=== PATIENT | male | born 1950 | race Caucasian/White ===

== ENCOUNTER 2018-10-19 07:51 | Day surgery (SDC) | payer MEDICARE ==
[~2018-10-19] VITALS: Ht 172.7 cm; Wt 97.9 kg
[~2018-10-19 07:51] MED LIST: ASPI81TA26 PO; ATOR1TAB19 PO; LIDOCAINE 2% INJ 100 MG/5 ML SDV (FOR ANES.) As Ordered ONE; LISI10TA4 PO; METF500T13 PO; PROPOFOL 200 MG/20 ML VIAL As Ordered ONE; RANI1TAB6 PO
[2018-10-19] MEDS ORDERED: NS 1,000 ML IV ONE (09:00)
--- NOTE | 2018-10-19 09:23 | ROOR ---
Patient Name: James Devine Procedure Date: 10/19/2018 9:03 AM Date of : 1950 Age: 68 Room: [facility] Gender: Male Note Status: Finalized Procedure: Colonoscopy Indications: High risk colon cancer surveillance: Personal history of colonic polyps Providers: Edgar Todd Jr, MD Referring MD: Joseph Perez MD Requesting Provider: Medicines: Propofol per Anesthesia Complications: No immediate complications. Procedure: Pre-Anesthesia Assessment: - Prior to the procedure, a History and Physical was performed, and patient medications and allergies were reviewed. The patient is competent. The risks and benefits of the procedure and the sedation options and risks were discussed with the patient. All questions were answered and informed consent was obtained. Patient identification and proposed procedure were verified by the physician and the nurse in the pre-procedure area and in the procedure room. Mental Status Examination: alert and oriented. Airway Examination: normal oropharyngeal airway and neck mobility. Respiratory Examination: clear to auscultation. CV Examination: normal. ASA Grade Assessment: II - A patient with mild systemic disease. After reviewing the risks and benefits, the patient was deemed in satisfactory condition to undergo the procedure. The anesthesia plan was to use moderate sedation / analgesia (conscious sedation). Immediately prior to administration of medications, the patient was re-assessed for adequacy to receive sedatives. The heart rate, respiratory rate, oxygen saturations, blood pressure, adequacy of pulmonary ventilation, and response to care were monitored throughout the procedure. The physical status of the patient was re-assessed after the procedure. The Colonoscope was introduced through the anus and advanced to the cecum, identified by appendiceal orifice and ileocecal valve. The colonoscopy was performed without difficulty. The patient tolerated the procedure well. The quality of the bowel preparation was adequate. Findings: The rectum, recto-sigmoid colon, descending colon, transverse colon, ascending colon, cecum, appendiceal orifice and ileocecal valve appeared normal. Multiple small and large-mouthed diverticula were found in the sigmoid colon. Impression: - The rectum, recto-sigmoid colon, descending colon, transverse colon, ascending colon, cecum, appendiceal orifice and ileocecal valve are normal. - Diverticulosis in the sigmoid colon. - No specimens collected. Recommendation: - Discharge patient to home (ambulatory). - Repeat colonoscopy in 5 years for surveillance. Edgar Todd MD Edgar Todd Jr, MD 10/19/2018 9:23:15 AM Electronically signed by Edgar Todd Jr, MD Number of Addenda: 0 Note Initiated On: 10/19/2018 9:03 AM Estimated Blood Loss: Estimated blood loss: none.
[2018-10-19 09:51] VITALS: BP 129/74
== END 2018-10-19 09:52 | disposition home or self-care (01) ==
LOC: M OPP 07:51
PROVIDERS: ATTEND Surgery
DX: K57.30 Diverticulosis of large intestine without perforation or abscess without bleeding (principal); Z86.010 Personal history of colon polyps

== ENCOUNTER → 2019-08-14 | Outpatient (CLI) | payer MEDICARE ==
[~2019-08-14] MED LIST changes: -LIDOCAINE 2% INJ 100 MG/5 ML SDV (FOR ANES.) As Ordered ONE; -PROPOFOL 200 MG/20 ML VIAL As Ordered ONE; +RANI-397 PO; -RANI1TAB6 PO
[2019-08-14 10:02] LABS: INR 1.04; PROTHROMBIN TIME 13.3 SECONDS (11.8-14.0)
[2019-08-14 10:08] LABS: HEMATOCRIT 46.4 % (42.0-52.0); HEMOGLOBIN 15.6 g/dl (13.5-17.5); MEAN CORPUSCULAR HEMOGLOBIN 31.7 pg (27.0-33.0); MEAN CORPUSCULAR HGB CONC 33.6 g/dl (32.0-36.5); MEAN CORPUSCULAR VOLUME 94.3 fl (80.0-96.0); PLATELET COUNT, AUTOMATED 212 10^3/uL (150-450); RED BLOOD COUNT 4.92 10^6/uL (4.30-6.10); WHITE BLOOD COUNT 4.7 10^3/uL (4.0-10.0)
[2019-08-14 10:27] LABS: ALBUMIN 3.8 GM/DL (3.2-5.2); ALT/SGPT 34 U/L (12-78); BILIRUBIN,TOTAL 0.7 MG/DL (0.2-1.0); BLOOD UREA NITROGEN 20 MG/DL (7-18); CALCIUM LEVEL 9.1 MG/DL (8.8-10.2); CARBON DIOXIDE LEVEL 29 MEQ/L (21-32); CHLORIDE LEVEL 106 MEQ/L (98-107); CREATININE FOR GFR 1.01 MG/DL (0.70-1.30); ERYTHROCYTE SEDIMENTATION RATE 6 mm/hr (0-20); GLOMERULAR FILTRATION RATE > 60.0 (>49); GLUCOSE, FASTING 144 MG/DL (70-100); POTASSIUM SERUM 4.6 MEQ/L (3.5-5.1); SODIUM LEVEL 140 MEQ/L (136-145); TOTAL PROTEIN 6.7 GM/DL (6.4-8.2)
--- NOTE | 2019-08-15 08:37 | REP ---
CHEST, TWO VIEWS: Two views of the chest are performed. There is no acute infiltrate or pulmonary edema. The heart is normal in size. There is tortuosity and calcification of the thoracic aorta. Mediastinal silhouette is otherwise unremarkable. There are mild degenerative changes of the spine. Metallic fixation is seen in the lower cervical spine. IMPRESSION: No acute pulmonary disease. Electronically Signed by Jerry Vogel MD 08/15/2019 10:47 P
--- NOTE | 2019-08-16 01:09 | ECGEPIP ---
[facility] Test Date: 2019-08-14 Pat Name: MARGARET MANZO Department: Room: - Gender: Male Boat Hand: HIRA : 1950 Requested By: Max Coates Order Number: [id number] Reading MD: Akash Purvis Measurements Intervals [place] Rate: 60 P: 97 ND: 197 QRS: 11 QRSD: 79 T: 23 QT: 388 QTc: 389 Interpretive Statements SINUS RHYTHM NONSPECIFIC T-WAVE ABNORMALITY Compared to prior tracing in the system, NO SIGNIFICANT CHANGES Electronically Signed on 08-16-2019 1:09:45 EST by Akash Purvis
== END ==
LOC: M LAB 08:58
PROVIDERS: ATTEND Orthopaedic Surgery
DX: Z01.818 Encounter for other preprocedural examination (principal); M17.12 Unilateral primary osteoarthritis, left knee; E11.9 Type 2 diabetes mellitus without complications; Z88.0 Allergy status to penicillin; Z91.012 Allergy to eggs; Z79.899 Other long term (current) drug therapy

== ENCOUNTER 2019-08-20 09:26 | Inpatient (IN) | payer MEDICARE ==
--- NOTE | 2019-08-17 15:02 | HPE ---
DATE OF ADMISSION: 08/20/2019 ATTENDING PHYSICIAN: Dr. Gillespie CHIEF COMPLAINT: Left knee degenerative arthritis. HISTORY The patient is a pleasant 69-year-old male with progressively worsening left knee pain and stiffness. He failed to improve with conservative measures. He continues to have symptoms with weightbearing activities and activities of daily living. The patient consented for an elective left total knee arthroplasty with Dr. Gillespie for his continued symptoms. Medical optimization pending with Dr. Perez. CURRENT MEDICATIONS: - pravastatin 10 mg daily - Lisinopril 10 mg daily - aspirin 81 mg daily - ranitidine 75 mg daily - metformin 500 mg twice daily ALLERGIES: AMOXICILLIN, EGGS. CHRONIC MEDICAL CONDITIONS: 1. Hypertension. 2. Hyperlipidemia. 3. Diabetes. 4. Gastroesophageal reflux disease (GERD). PAST SURGICAL HISTORY: 1. Bilateral knee arthroscopies SOCIAL HISTORY: The patient denies tobacco use and occasionally uses alcohol. FAMILY HISTORY: Noncontributory. REVIEW OF SYSTEMS: The patient denies fevers, chills, nausea, vomiting or diarrhea. Denies chest pain, shortness of breath, lightheadedness, dizziness or headaches. Denies any upper respiratory or urinary tract infection symptoms. Denies any abdominal pain. He does continue to have left knee pain with weightbearing activities and activities of daily living. PHYSICAL EXAMINATION General: Well-nourished, well-developed male in no apparent distress. He is alert, oriented and cooperative. Mood and affect are appropriate. Vital signs: Height 67.25 inches, weight 212.8 pounds, temperature 97.2, heart rate 72, respirations 14, blood pressure 130/78. Neck: Supple without lymphadenopathy. Heart: Regular rate and rhythm. Lungs: Clear to auscultation bilaterally. Abdomen: Bowel sounds are present. Abdomen is soft and nontender to palpation. Musculoskeletal: Left knee reveals no erythema, edema or ecchymosis. There are benign-appearing surgical portal holes present. There is tenderness along the medial joint line. The patient can extend knee fully and flex to approximately 90 degrees. Left lower extremity strength is 5/5. There was no hip irritability elicited with range of motion testing. The patient's calf is soft, nontender to palpation with no palpable cords noted. He is neurovascularly intact distally. LABORATORY DATA: Chest x-ray showed no acute pulmonary disease. Left knee x-ray notable for end-stage degenerative changes. EKG showed sinus rhythm with nonspecific T-wave abnormality. Comprehensive metabolic profile: Fasting glucose elevated at 144, BUN elevated 20, creatinine 1.01, GFR greater than 60, sodium 140, potassium 4.6, chloride 106, carbon dioxide 29, anion gap decreased at 5, calcium 9.1, AST 24, ALT 34, alkaline phosphatase 72, total bilirubin 0.7, total protein 6.7, albumin 3.8, albumin-globulin ratio 1.31. Prothrombin time 13.3, INR 1.04. Complete blood count ESR 6, WBCs 4.7, RBCs 4.92, hemoglobin 15.6, hematocrit 46.4, platelets 212. IMPRESSION: 1. Left knee degenerative arthritis with x-rays notable for end-stage degenerative changes. PLAN: The patient has consented for an elective left total knee arthroplasty with Dr. Gillespie for his continued symptoms. Medical optimization pending with Dr. Perez. Reviewed pre and postoperative instructions to include but not limited to need to be nothing by mouth after midnight, length of stay, when to stop NSAIDs, aspirin and anticoagulants. The patient will also follow primary acute care certified nursing assistant's recommendations for how to take their daily medications. DIDIER
[~2019-08-20] VITALS: Ht 172.7 cm; Wt 97.1 kg
[2019-08-20] MEDS: ATORVASTATIN 10 MG TAB PO SCH (09:00)
[~2019-08-20 09:26] MED LIST changes: +BUPIVACAINE HCL 0.25% 10 ML VIAL As Ordered ONE; +BUPIVACAINE LIPOSOME/PF 1.3% 20ML VIAL (13.3MG/ML)(EXPAREL)(C9290 PER1MG) As Ordered ONE; +EPINEPHrine INJ 1 MG/ML 1ML VIAL As Ordered ONE; +LR 1,000 ML IV ONE; +MIDAZOLAM INJ 2 MG/2 ML VIAL (J2250) IV SCH; +TRANEXAMIC ACID 100 MG/ML 10ML VIAL As Ordered ONE; +ceFAZolin 1GM INJ (J0690 PER 500MG) As Ordered ONE; +ceFAZolin SOD 2 GM in IV 1 EA IV ONE; +fentaNYL 100 MCG/2 ML INJECTION (J3010) IV SCH
[2019-08-20] MEDS ORDERED: ACETAMINOPHEN 500 MG TAB PO ONE (09:45)
[2019-08-20] MEDS ORDERED: fentaNYL 100 MCG/2 ML INJECTION (J3010) As Ordered ONE ×2 (11:40→12:43)
[2019-08-20] MEDS ORDERED: MIDAZOLAM INJ 2 MG/2 ML VIAL (J2250) As Ordered ONE ×2 (11:40→12:43)
[2019-08-20] MEDS ORDERED: propofoL 200 MG/20 ML VIAL As Ordered ONE ×3 (12:43→13:32)
[2019-08-20] MEDS ORDERED: ePHEDrine SULFATE 25 MG/5 ML(5MG/ML) SYRINGE As Ordered ONE (12:55)
[2019-08-20] MEDS ORDERED: ONDANSETRON 4MG/2ML VIAL (J2405) IV PRN ×2 (14:15→15:15)
[2019-08-20] MEDS ORDERED: HYDROMORPHONE HCL 0.5 MG/ 0.5 ML SYRINGE (J1170 PER 1) IV PRN (14:15)
[2019-08-20] MEDS ORDERED: PERCOCET 5MG/325MG TAB PO PRN ×4 (14:15→21:15)
[2019-08-20] MEDS ORDERED: LR 1,000 ML IV SCH (14:15)
[2019-08-20] MEDS ORDERED: fentaNYL 100 MCG/2 ML INJECTION (J3010) IV PRN (14:15)
--- NOTE | 2019-08-20 14:53 | RO ---
DATE OF OPERATION: 08/20/2019 PREOPERATIVE DIAGNOSIS: Left knee degenerative arthritis. POSTOPERATIVE DIAGNOSIS: Left knee degenerative arthritis. PROCEDURE: Left total knee arthroplasty using a size 7 cruciate-retaining femoral component with a size 7 tibial tray and 8 mm polyethylene insert rotating platform with a 38 mm polyethylene button. The prosthesis was made by [employer]. It was an Attune knee. All components were cemented. SURGEON: Max Gillespie MD LINK TRAINER OPERATOR: Ms. Meena Baugh ANESTHESIA: Spinal with left femoral nerve block. COMPLICATIONS: None. ESTIMATED BLOOD LOSS: 20 mL. SPECIMENS: Joint surface. DESCRIPTION OF PROCEDURE: Antibiotics were given intravenously preoperatively, a successful left femoral nerve block, and then a spinal anesthetic was induced, the tourniquet was placed on the left upper thigh and not inflated. The left lower extremity was carefully prepped and draped in the usual sterile fashion. The leg elevated. Then, after appropriate time-out, the tourniquet was inflated. A longitudinal incision was made for a medial parapatellar approach to the knee. Bovie cautery used to coagulate crossing vessels. Subperiosteal dissection around the proximal medial and lateral tibial plateau was performed. The patella was then everted, the knee flexed, the anterior cruciate ligament (ACL) debrided, then the drill placed down the center of the femoral canal. Intramedullary krystina was then placed with the distal femoral cutting jig set at 5-degree valgus cut for a left knee at 9-mm resection level. The block was pinned into position, the distal femoral cut was performed. AP sizing jig measured for a size 7 prosthesis. 3 degrees of external rotation dialed in. The block was pinned into position followed by the 4-in-1 block, and then the anterior and posterior chamfer cuts performed. The sulcus osteotomy guide was then placed, and the sulcus osteotomy performed. We then exposed the proximal tibia, used the extramedullary alignment jig to estimate being parallel to the mechanical axis, referencing off the medial tibial condyle at 4 mm resection level. The block was pinned into position, then a secondary check with the extramedullary krystina confirmed we appeared to be parallel to the mechanical axis. The proximal tibial osteotomy was thus performed, and then the lamina tobacco drying machine operator was placed medially, and we performed a completion of lateral meniscectomy, debriding the posterior and lateral osteophytes, and then placed the lamina tobacco drying machine operator medially, and performed a completion of lateral meniscectomy with debridement of the posterior and lateral osteophytes. We then placed the spacer block, and 8 mm spacer block that fit the best in both flexion and in extension with good stability to varus and valgus stress testing. We then exposed the proximal tibia, sized for a size #7 tibial tray, which was pinned into position, followed by the reamer and broach. The trial polyethylene was placed, the trial femoral component was then placed, the knee was brought into extension, the patella was everted, patellar osteotomy performed, then the lug holes drilled, and then the trial placed, and the patellofemoral tracking was anatomic. We then drilled the lug holes for the femur, removed all the trial components, placed Exparel in the subperiosteal tissues around the distal femur and the proximal tibia, and then Ms. Meena Baugh mixed the cement on the back table as I prepared the bony surfaces for cementing with a copious amount of pulsatile lavage irrigant solution. She was also critical to the success of this difficult procedure by helping to manipulate the knee as needed, helped with appropriate soft tissue retraction, helped to mix the cement, helped to close the wound, helped to prepare the patient, amongst many other tasks to allow me to perform the operation smoothly, efficiently, and safely. We then cemented the tibial tray, removed excess cement, placed the polyethylene, cemented the femoral component, removed excess cement, placed the knee in extension, everted the patella, and then held the patella with a clamp, and then removed excess cement, and held the knee in full extension until the cement had hardened; and as we were awaiting this, we copiously pulsatile lavage irrigated out the knee joint, and then placed tranexamic acid into the knee joint, and then closed the apex of the arthrotomy with two #1 polydioxanone suture (PDS) sutures. The medial parapatellar area was closed with a single #1 PDS suture, then a running double-arm Stratafix used to close the capsule. The tourniquet was then released. Then, we irrigated again and then closed the deep subdermal tissues with interrupted 2-0 PDS sutures. The skin was closed with ward, covered by an Optifoam dry sterile bulky dressing. He was then transferred to the recovery room in stable condition. There were no intraoperative complications.
--- NOTE | 2019-08-20 14:56 | REP ---
Left knee two views postoperative study: There is a total knee arthroplasty. The components are tightly applied and in satisfactory positions alignment. Skin ward are incidentally noted. Electronically Signed by Jerry Winter MD 08/20/2019 02:48 P
[2019-08-20] MEDS ORDERED: ROPIvacaine 0.5% 30 ML INJECTION (J2795 PER 1MG) ONE (14:58)
[2019-08-20] MEDS ORDERED: dexameTHASONE 10 MG/1 ML VIAL PRES.FREE (J1100) ONE (14:58)
[2019-08-20] MEDS ORDERED: LIDOCAINE 1% MDV 20ML VIAL ONE (14:58)
[2019-08-20] MEDS ORDERED: ACETAMINOPHEN TAB 650MG DOSE (2X325MG) PO PRN (15:15)
[2019-08-20] MEDS: LR 1,000 ML IV SCH (15:15)
[2019-08-20 15:30] VITALS: BP 141/79
[2019-08-20 16:02] VITALS: BP 141/83
[2019-08-20] MEDS ORDERED: GLUCOSE 4 GM CHEW TABLET PO PRN (16:45)
[2019-08-20] MEDS ORDERED: GLUCAGON FOR INJ 1 MG VIAL (J1610) SC PRN (16:45)
[2019-08-20] MEDS ORDERED: DEXTROSE 50% 50 ML SYRINGE IV PRN (16:45)
[2019-08-20 17:00] VITALS: BP 141/81
[2019-08-20] MEDS: HumaLOG INSULIN (NovoLOG) PER UNIT SC SCH (17:01)
--- NOTE | 2019-08-20 17:59 | CR ---
DATE OF CONSULTATION: 08/20/2019 REQUESTING PHYSICIAN: Dr. Gillespie. REASON FOR CONSULTATION: Medical management of diabetes. HISTORY OF PRESENT ILLNESS: Mr. Devine is a 69-year-old gentleman who has a history of hypertension, hyperlipidemia, as well as non-insulin dependent diabetes mellitus type 2, along with gastroesophageal reflux disease (GERD). He has longstanding severe left knee osteoarthritis and underwent elective left total knee arthroplasty today. He is seen in the postoperative setting following his surgery. He is doing well. He is not experiencing any pain. His is at the bedside. He denies having any chest discomfort, shortness of breath. He is not have adverse reactions to the spinal block that he has received. He is able to move his legs at this time. His vital signs are stable and he remains afebrile. ALLERGIES: PENICILLIN, EGGS. MEDICATIONS AT HOME: - baby aspirin daily - atorvastatin 10 mg daily - lisinopril 10 mg daily - metformin 5 mg twice a day - ranitidine 1 tablet by mouth daily PAST MEDICAL HISTORY: 1. Hypertension. 2. Hyperlipidemia. 3. Non-insulin dependent diabetes. 4. Gastroesophageal reflux disease (GERD). PAST SURGICAL HISTORY: Is notable for: 1. Bilateral knee arthroscopy. 2. Left total knee arthroplasty this hospitalization. SOCIAL HISTORY: Patient is , lives at home with his . Does not use tobacco, alcohol or illicit drugs. He is a [employer]. His is the surrogate medical decision-maker. FAMILY HISTORY: Noncontributory. REVIEW OF SYSTEMS: A 12 system review with the patient is otherwise negative. On exam today, the patient's temperature is 97.2, heart rate 66 and regular, respirations 20, blood pressure 141/81, oxygen saturation is 98% on 2 liters nasal cannula at this time. GENERAL: Patient is alert and oriented times three. He is in pleasant spirits. He appears in no acute distress. His skin is warm to touch. His knee is wrapped without any visible exsanguination through the surgical dressings. His pupils are symmetric and reactive to light. No scleral icterus. Oropharynx clear. Neck supple. Lungs sounds are clear. Heart is S1, S2. No murmurs, rubs or gallops. Abdomen is soft. Extremities without any significant cyanosis, clubbing or edema. Dorsalis pedis pulses are 2+ and symmetric. NEUROLOGIC EXAM: Cranial nerves II-XII appear to be grossly intact. Gait is not tested. Glucose level is 132. IMPRESSION: 1. Non-insulin dependent diabetes mellitus type 2. Patient will be resumed on his oral metformin as well as placed on sliding scale, should his blood sugars trend higher. Will check his blood sugars before meals and at bedtime. 2. Hypertension. Patient will be resumed on his lisinopril at 10 mg by mouth daily. 3. Hyperlipidemia. Patient will be resumed on his atorvastatin at 10 mg daily. 4. History of GERD. Patient will be resumed on Pepcid daily. 5. Deep venous thrombosis (DVT) prophylaxis. Patient is ordered for Xarelto. I have instructed the patient that while he is taking Xarelto, he should not be taking his baby aspirin. He is okay to resume his baby aspirin once his Xarelto therapy is completed, as indicated by the orthopedic service. Thank you for allowing us to participate in the care of this patient. We will gladly follow him with you.
[2019-08-20 18:00] VITALS: BP 138/77
[2019-08-20] MEDS ORDERED: METF-791 PO (18:59)
[2019-08-20] MEDS ORDERED: HumaLOG INSULIN (NovoLOG) PER UNIT SC SCH (21:00)
[2019-08-20] MEDS: ceFAZolin SOD 2 GM in IV 1 EA IV SCH (21:01)
[2019-08-20] MEDS: MORPHINE 2 MG/ML 1ML VIAL (J2270) IV PRN (21:01)
[2019-08-20 22:00] VITALS: BP 140/77
[2019-08-20 23:00] VITALS: O2SAT 94
[2019-08-21 02:00] VITALS: BP 140/78
[2019-08-21] MEDS: LR 1,000 ML IV SCH (03:45)
[2019-08-21] MEDS: MORPHINE 2 MG/ML 1ML VIAL (J2270) IV PRN (05:21)
[2019-08-21] MEDS: ceFAZolin SOD 2 GM in IV 1 EA IV SCH ×2 (05:22→11:51)
[2019-08-21 06:00] VITALS: BP 158/78
[2019-08-21] MEDS: PERCOCET 5MG/325MG TAB PO PRN ×2 (06:17→11:45)
[2019-08-21] MEDS ORDERED: PERC5TAB12 PO (06:51)
[2019-08-21] MEDS ORDERED: XARE10TA PO (06:51)
[2019-08-21 07:58] LABS: HEMATOCRIT 42.8 % (42.0-52.0); HEMOGLOBIN 14.2 g/dl (13.5-17.5); MEAN CORPUSCULAR HGB CONC 33.2 g/dl (32.0-36.5); MEAN CORPUSCULAR VOLUME 93.4 fl (80.0-96.0); PLATELET COUNT, AUTOMATED 196 10^3/uL (150-450); RED BLOOD COUNT 4.58 10^6/uL (4.30-6.10); WHITE BLOOD COUNT 9.4 10^3/uL (4.0-10.0)
[2019-08-21] MEDS ORDERED: metFORMIN XR 500MG TAB *GLUCOPHAGE XR PO SCH (08:00)
[2019-08-21] MEDS ORDERED: metFORMIN (GLUCOPHAGE) 500 MG TAB PO SCH (08:00)
[2019-08-21 08:44] LABS: ALBUMIN 3.3 GM/DL (3.2-5.2); ALT/SGPT 30 U/L (12-78); BILIRUBIN,TOTAL 0.6 MG/DL (0.2-1.0); BLOOD UREA NITROGEN 16 MG/DL (7-18); CALCIUM LEVEL 8.2 MG/DL (8.8-10.2); CARBON DIOXIDE LEVEL 24 MEQ/L (21-32); CHLORIDE LEVEL 104 MEQ/L (98-107); CREATININE FOR GFR 1.01 MG/DL (0.70-1.30); GLOMERULAR FILTRATION RATE > 60.0 (>49); GLUCOSE, FASTING 194 MG/DL (70-100); POTASSIUM SERUM 4.4 MEQ/L (3.5-5.1); SODIUM LEVEL 136 MEQ/L (136-145); TOTAL PROTEIN 6.6 GM/DL (6.4-8.2)
[2019-08-21] MEDS: HumaLOG INSULIN (NovoLOG) PER UNIT SC SCH ×2 (08:44→12:18)
[2019-08-21] MEDS ORDERED: FAMOTIDINE 20 MG TAB PO SCH (09:00)
[2019-08-21] MEDS ORDERED: MOM 30ML SUSPENSION UDC PO SCH (09:00)
[2019-08-21] MEDS ORDERED: MIRALAX *UNIT DOSE* 17GM PACKET PO SCH (09:00)
[2019-08-21] MEDS ORDERED: FLUBLOK(EGG FREE)(QUAD)INFLUENZA VACC 0.5ML SYRINGE (90682)18YRS&OLDER IM ONE (09:00)
[2019-08-21] MEDS ORDERED: lisinopriL 10 MG TAB PO SCH (09:00)
[2019-08-21 09:27] VITALS: BP 151/79
[2019-08-21] MEDS: ATORVASTATIN 10 MG TAB PO SCH (09:28)
[2019-08-21] MEDS ORDERED: ONDANSETRON 4MG/2ML VIAL (J2405) IV PRN (12:15)
--- NOTE | 2019-08-21 12:51 | IPNPDOC ---
Subjective Date Seen The patient was seen on 08/21/19. Subjective Chief Complaint/HPI Patient is comfortable in no apparent distress. Offers no new complaints General: Denies: ROS Unobtainable, Chills, Night Sweats, Fatigue, Malaise, Normal Appetite, Other Symptoms Constitutional: Denies: Chills, Fever, Malaise, Night Sweats, Weakness, Fatigue, Weight Loss, Lethargy, Other Eyes: Denies: Pain, Vision change Pulmonary: Denies: Dyspnea, Cough, Pleuritic Chest Pain, Other Symptoms Cardiovascular: Denies: Chest Pain, Palpitations, Orthopnea, Paroxysmal Noc. Dyspnea, Edema, Lt Headedness, Other Symptoms Endocrine: Denies: Polydipsia, Polyphagia, Polyuria, Heat Intolerance, Cold Intolerance, Other Endocrine Sx Musculoskeletal: Denies: Neck Pain, Back Pain, Shoulder Pain, Arm Pain, Hand Pain, Leg Pain, Foot Pain, Joint Pain, Muscle Pain, Spasms, Other Symptoms Neurological: Denies: Weakness, Numbness, Incoordination, Change in speech, Confusion, Seizures, Other Symptoms Objective Physical Examination General Exam: Positive: Alert, Cooperative Eye Exam: Positive: PERRLA, Conjunctiva & lids normal ENT Exam: Positive: Atraumatic Neck Exam: Positive: Supple Chest Exam: Positive: Clear to auscultation, Normal air movement Heart Exam: Positive: Rate Normal, Normal S1, Normal S2 Abdomen Exam: Positive: Normal bowel sounds, Soft, Tenderness Male Exam: Positive: Normal Genital Exam Extremity Exam: Positive: Normal pulses Neuro Exam: Positive: Strength at 5/5 X4 ext, Cranial Nerves 3-12 NL Psych Exam: Positive: Oriented x 3 Assessment /Plan Problems (1) Loose left total knee arthroplasty Status: Acute Problem Text: Patient is status post left total knee arthroplasty Physical therapy in progress Possible discharge home soon DVT prophylaxis and pain management as per orthopedic Plan/VTE VTE Prophylaxis Ordered?: Yes VS, I&O, 24H, Fishbone Vital Signs/I&O Vital Signs Date Time Temp Pulse Resp B/P (MAP) Pulse Ox O2 Delivery O2 Flow Rate FiO2 08/21/19 11:45 18 Room Air 08/21/19 09:27 151/79 08/21/19 06:00 97.0 57 95 08/20/19 15:00 2 I&O- Last 24 Hours up to 6 AM 08/21/19 05:59 Intake Total 2200 ml Output Total 50 ml Balance 2150 ml Laboratory Data 24H LABS Laboratory Tests 2 08/20/19 16:56: Bedside Glucose (Misc Panel) 143H 08/20/19 20:03: Bedside Glucose (Misc Panel) 158H 08/21/19 05:13: Bedside Glucose (Misc Panel) 164H 08/21/19 07:44: Nucleated Red Blood Cells % (auto) 0.0, Anion Gap 8, Glomerular Filtration Rate > 60.0, Calcium Level 8.2L, Total Bilirubin 0.6, Aspartate Amino Transf (AST /SGOT) 17, Alanine Aminotransferase (ALT/SGPT) 30, Alkaline Phosphatase 64, Total Protein 6.6, Albumin 3.3, Albumin/Globulin Ratio 1.00 08/21/19 11:50: Bedside Glucose (Misc Panel) 159H CBC/BMP Laboratory Tests 08/21/19 07:44 LOR BERMAN MD Aug 21, 2019 12:50
[2019-08-21 13:53] VITALS: BP 146/80
[2019-08-21] MEDS ORDERED: RIVAROXABAN 10 MG TAB (XARELTO) PO SCH (18:00)
--- NOTE | 2019-08-23 17:55 | DSES ---
DATE OF ADMISSION: 08/20/2019 DATE OF DISCHARGE: 08/21/2019 ADMITTING DIAGNOSIS: Osteoarthritis, left knee. OTHER DIAGNOSES: 1. Hypertension. 2. Elevated lipids. 3. Diabetes. 4. Gastric reflux disease. DISCHARGE DIAGNOSIS: Osteoarthritis, left knee, status post left total knee arthroplasty. OPERATION PERFORMED: Left total knee arthroplasty. HISTORY: A 69-year-old male patient with progressively worsening left knee pain and stiffness. He failed to improve with conservative management. He was admitted for elective replacement of his knee on the left side. HOSPITAL COURSE: The patient was admitted on the day of surgery and underwent a left total knee arthroplasty, which was uneventful. He did well in the postoperative period. His hospital course was without complications. He was up with physical therapy per the protocol, and his pain was controlled. On day of discharge he was doing well, weightbearing as tolerated on his left lower extremity. He will use thromboembolic deterrent (JOLYNN) stockings for 30 days postoperative for deep vein thrombosis (DVT) prophylaxis. He will use Xarelto 10 mg per the protocol for DVT prophylaxis. He will use oral pain medications for pain control. Follow up in our office 10-14 days for surgical followup. He will resume his preoperative medications and diet. He was given instructions to include, but not limited to, wound monitoring and activity limitations. Please refer to the medical record further details.
== END 2019-08-21 14:55 | disposition home or self-care (01) | DRG 470 ==
LOC: M OR 09:26 → M MS5PR 15:10
PROVIDERS: ADMIT Orthopaedic Surgery; ATTEND Orthopaedic Surgery
PROC: 0SRD0J9 Replacement of Left Knee Joint with Synthetic Substitute, Cemented, Open Approach (ICD-10-PCS; principal; 2019-08-20 12:30)
DX: M17.12 Unilateral primary osteoarthritis, left knee (principal); E11.9 Type 2 diabetes mellitus without complications; I10 Essential (primary) hypertension; K21.9 Gastro-esophageal reflux disease without esophagitis; Z79.82 Long term (current) use of aspirin; Z79.899 Other long term (current) drug therapy; E78.5 Hyperlipidemia, unspecified

== ENCOUNTER → 2021-12-28 | Outpatient (REF) | payer MEDICARE ==
[~2021-12-28] MED LIST changes: -BUPIVACAINE HCL 0.25% 10 ML VIAL As Ordered ONE; -BUPIVACAINE LIPOSOME/PF 1.3% 20ML VIAL (13.3MG/ML)(EXPAREL)(C9290 PER1MG) As Ordered ONE; -EPINEPHrine INJ 1 MG/ML 1ML VIAL As Ordered ONE; +LISI10TA22 PO; -LISI10TA4 PO; -LR 1,000 ML IV ONE; +METF-838 PO; -MIDAZOLAM INJ 2 MG/2 ML VIAL (J2250) IV SCH; +PERC5TAB12 PO; -TRANEXAMIC ACID 100 MG/ML 10ML VIAL As Ordered ONE; +XARE10TA PO; -ceFAZolin 1GM INJ (J0690 PER 500MG) As Ordered ONE; -ceFAZolin SOD 2 GM in IV 1 EA IV ONE; -fentaNYL 100 MCG/2 ML INJECTION (J3010) IV SCH
== END ==
LOC: M LAB REF 16:16
PROVIDERS: ATTEND Family Medicine
DX: D64.9 Anemia, unspecified (principal)